=== PATIENT | female | born 1950 | race Caucasian/White ===

== ENCOUNTER 2017-06-01 20:01 | Emergency (ER) | payer SELFPAY ==
[2017-06-01] MEDS ORDERED: ACETAMINOPHEN 1,000 MG/100 ML 100 ML IV STA (20:20)
[2017-06-01] MEDS ORDERED: SODIUM CHLORIDE 0.9% 1,000 ML IV ONE ×3 (20:20)
--- NOTE | 2017-06-01 20:23 | ED Physician Documentation ---
History of Present Illness - Stated complaint Stated Complaint: FEVER, PAIN - Chief complaint Chief Complaint: General - History obtained from History obtained from: Patient, Friend - History of Present Illness Timing: How many weeks ago (1) Pain level max: 8 Pain level now: 8 Improved by: motrin Worsened by: moving - Additonal information Additional information: Patient is a 66-year-old female who presents to the emergency department with intermittent fevers, body aches, nausea, vomiting, diarrhea for the past week. The vomiting and diarrhea stopped approximately 3 days ago, but she has continued to have fevers and body aches. Also has a mild cough. No sore throat. Has been taking Motrin and aspirin at home for the pain. Denies any dysuria. Has been around people who have been ill. Has not had any vaccinations this year. Has not had a flu shot. Review of Systems Ten Systems: 10 systems reviewed and negative Constitutional: reports: Fever, Chills, Myalgias, Fatigue Nose: reports: Congestion Respiratory: reports: Cough GI: reports: Nausea, Vomiting, Diarrhea : denies: Dysuria Skin: denies: Rash Musculoskeletal: denies: Neck pain, Back pain Neurologic: denies: Focal weakness, Numbness, Headache PD PAST MEDICAL HISTORY - Past Medical History Past Medical History: No - Past Surgical History Past Surgical History: No - Present Medications Home Medications: Ambulatory Orders Medication Instructions Recorded Confirmed Ciprofloxacin HCl [Cipro] 500 mg PO BID #20 tablet 06/01/17 Hydrocodone/Acetaminophen 1 - 2 each PO Q6H PRN #14 tablet 06/01/17 [Hydrocodon-Acetaminophen 5-325] Ondansetron Odt [Zofran] 4 mg TL Q6H PRN #10 tablet 06/01/17 - Allergies Allergies/Adverse Reactions: Allergies Allergy/AdvReac Type Severity Reaction Status Date / Time No Known Drug Allergies Allergy Verified 06/01/17 20:15 - Social History Does the pt smoke?: No Smoking Status: Never smoker Does the pt drink ETOH?: No Does the pt have substance abuse?: No - Immunizations Immunizations are current?: No PD ED PE NORMAL - Vitals Vital signs reviewed: Yes - General General: Alert and oriented X 3, No acute distress, Well developed/nourished - HEENT HEENT: PERRL, Ears normal, Pharynx benign, Other (dry lips and tongue) - Neck Neck: Supple, no meningeal sign, Other (shotty anterior lymphadenopathy) - Cardiac Cardiac: RRR, Strong equal pulses - Respiratory Respiratory: No respiratory distress, Clear bilaterally - Abdomen Abdomen: Soft, Non tender, Non distended - Back Back: No spinal TTP, Other (mild B CVAT) - Derm Derm: Warm and dry, No rash - Extremities Extremities: No edema - Neuro Neuro: Alert and oriented X 3, registered nurse practitioner 2-12 intact, No motor deficit, No sensory deficit, Normal speech - Psych Psych: Normal mood, Normal affect Results - Vitals Vitals: Vital Signs - 24 hr 06/01/17 06/01/17 20:05 21:16 Temperature 36.6 C 36.9 C Heart Rate 106 H 80 Respiratory 18 18 Rate Blood Pressure 161/101 H 159/111 H O2 Saturation 98 98 Oxygen O2 Source Room air - Labs Labs: Laboratory Tests 06/01/17 06/01/17 06/01/17 20:27 20:27 20:27 WBC 8.0 RBC 4.99 Hgb 15.4 Hct 45.5 MCV 91.2 MCH 30.8 MCHC 33.7 RDW 12.4 Plt Count 195 MPV 8.1 Neut # 6.2 Lymph # 1.0 L [place] # 0.7 Eos # 0.1 Baso # 0.0 Absolute Nucleated RBC 0.00 Nucleated RBC % 0.0 Sodium 136 Potassium 3.7 Chloride 102 Carbon Dioxide 24 Anion Gap 10.0 BUN 23 H Creatinine 1.6 H Estimated GFR (MDRD) 32 L Glucose 121 H Calcium 9.1 Total Bilirubin 1.0 AST 19 ALT 15 Alkaline Phosphatase 88 Total Protein 7.9 Albumin 4.0 Globulin 3.9 Albumin/Globulin Ratio 1.0 Lipase 29 Urine Color Urine Clarity Urine pH Ur Specific [place] Urine Protein Urine Glucose (UA) Urine Ketones Urine Occult Blood Urine Nitrite Urine Bilirubin Urine Urobilinogen Ur Leukocyte Esterase Urine RBC Urine WBC Ur Epithelial Cells Ur Squamous Epith Cells Urine Bacteria Ur Microscopic Review Urine Culture Comments Influenza A (Rapid) Negative Influenza B (Rapid) Negative Influenza Types A,B Ag - 06/01/17 22:08 WBC RBC Hgb Hct MCV MCH MCHC RDW Plt Count MPV Neut # Lymph # [place] # Eos # Baso # Absolute Nucleated RBC Nucleated RBC % Sodium Potassium Chloride Carbon Dioxide Anion Gap BUN Creatinine Estimated GFR (MDRD) Glucose Calcium Total Bilirubin AST ALT Alkaline Phosphatase Total Protein Albumin Globulin Albumin/Globulin Ratio Lipase Urine Color YELLOW Urine Clarity HAZY Urine pH 6.0 Ur Specific [place] 1.020 Urine Protein NEGATIVE Urine Glucose (UA) NEGATIVE Urine Ketones NEGATIVE Urine Occult Blood NEGATIVE Urine Nitrite POSITIVE H Urine Bilirubin NEGATIVE Urine Urobilinogen 0.2 (NORMAL) Ur Leukocyte Esterase TRACE H Urine RBC 0-5 Urine WBC >25 H Ur Epithelial Cells FEW Renal Tubular Ur Squamous Epith Cells MOD Squamous H Urine Bacteria Many H Ur Microscopic Review INDICATED Urine Culture Comments NOT INDICATED Influenza A (Rapid) Influenza B (Rapid) Influenza Types A,B Ag - Rads (name of study) cxr Radiology: Prelim report reviewed, EMP read contemporaneously, See rad report ( No acute disease) PD MEDICAL DECISION MAKING - ED course Complexity details: reviewed results, re-evaluated patient, considered differential, d/w patient ED course: Patient is a 66-year-old female who presents to the emergency department with diffuse body aches, bilateral CVA tenderness following 3 days of nausea vomiting and diarrhea. The symptoms stopped approximately 4 days ago. Appears to have pyelonephritis. No fever here. Normal white count. She is actually very well-appearing, nontoxic. Given 2 L of IV fluid as well as 4 mg of morphine. Symptoms resolved. Given Rocephin IV and will place on ciprofloxacin for home. We will also prescribe a small amount of pain medication for her for the next few days. Patient is not septic. Patient counseled regarding signs and symptoms for which I believe and urgent re- evaluation would be necessary. Patient with good understanding of and agreement to plan and is comfortable going home at this time This document was made in part using voice recognition software. While efforts are made to proofread this document, sound alike and grammatical errors may occur. Influenza testing is negative. Chest x-ray is normal. Departure - Departure Disposition: 01 Home, Self Care Clinical Impression: Pyelonephritis, Dehydration, Acute renal insufficiency Condition: Good Instructions: ED Kidney Infec Female Follow-Up: your,doctor in 1 week [Other] Prescriptions: Ciprofloxacin HCl [Cipro] 500 mg PO BID #20 tablet Hydrocodone/Acetaminophen [Hydrocodon-Acetaminophen 5-325] 1 - 2 each PO Q6H PRN #14 tablet PRN Reason: pain Ondansetron Odt [Zofran] 4 mg TL Q6H PRN #10 tablet PRN Reason: Nausea / Vomiting Comments: You appear to have a kidney infection tonight. You were given antibiotics tonight and start the oral antibiotics in the morning. Finish all antibiotics. Return if you worsen. Drink plenty of fluids and rest. Do not drink alcohol or drive while on narcotic pain medicine. Note that many narcotic pain relievers also contain tylenol/acetaminophen. Please ensure that your total dose of acetaminophen from all sources does not exceed 3 grams (3000mg) per day. You may constipated on this medication, take a stool softener such as "Colace" twice a day while you are on it. Also recommend a mvlj-rmh-ylzxpyl laxative such as senna or MiraLAX any day that you do not have a bowel movement. If you received narcotic pain medication in the emergency department, do not drive or operate machinery for the next 24 hours. Forms: Activity restrictions
[2017-06-01 20:39] LABS: BASOPHILS % (AUTO) 0.5 %; EOSINOPHILS # (AUTO) 0.1 10^3/uL (0.0-0.7); EOSINOPHILS % (AUTO) 0.8 %; HCT - HEMATOCRIT 45.5 % (37.0-47.0); HGB - HEMOGLOBIN 15.4 g/dL (12.0-16.0); LYMPHOCYTES % (AUTO) 12.6 %; MEAN CORPUSCULAR HEMOGLOBIN 30.8 pg (27.0-31.0); MEAN CORPUSCULAR HGB CONC 33.7 g/dL (32.0-36.0); MEAN CORPUSCULAR VOLUME 91.2 fL (81.0-99.0); MEAN PLATELET VOLUME 8.1 fL (7.9-10.8); MONOCYTES # (AUTO) 0.7 10^3/uL (0.0-1.0); MONOCYTES % (AUTO) 8.2 %; NEUTROPHILS # (AUTO) 6.2 10^3/uL (1.5-6.6); NEUTROPHILS % (AUTO) 77.9 %; RED BLOOD COUNT 4.99 10^6/uL (4.20-5.40); RED CELL DISTRIBUTION WIDTH 12.4 % (12.0-15.0)
[2017-06-01 20:49] LABS: CALCIUM 9.1 mg/dL (8.5-10.3); CREATININE 1.6 mg/dL (0.4-1.0); POTASSIUM 3.7 mmol/L (3.5-5.0); TOTAL PROTEIN 7.9 g/dL (6.7-8.2)
--- NOTE | 2017-06-01 21:03 | XRAY Preliminary Report ---
Exam: XR CHEST 2 VIEW PA/LAT IMPRESSION: No acute cardiopulmonary abnormality. [facility] SITE ID: [id number]
[2017-06-01] MEDS ORDERED: KETOROLAC 60 MG/2 ML VIAL IVP STA (21:06)
--- NOTE | 2017-06-01 21:06 | XRAY Report ---
EXAM: CHEST RADIOGRAPHY EXAM DATE: 06/01/2017 08:48 PM. CLINICAL HISTORY: Fever, cough, bodyaches. COMPARISON: None. TECHNIQUE: 2 views. FINDINGS: Lungs/Pleura: No focal opacities evident. No pleural effusion. No pneumothorax. Normal volumes. Mediastinum: Normal heart size itself tortuous aorta. Other: None. IMPRESSION: No acute cardiopulmonary abnormality. [facility] Referring Provider Line: [phone] SITE ID: [id number]
[2017-06-01] MEDS ORDERED: MORPHINE 10 MG/ML VIAL IVP STA (21:21)
[2017-06-01 22:12] LABS: BILIRUBIN,URINE NEGATIVE (NEGATIVE)
[2017-06-01 22:13] LABS: UA w/ MICROSCOPIC CHARGE YES
[2017-06-01 22:21] LABS: WBC,URINE >25 /HPF (0-5)
[2017-06-01 22:23] LABS: UR CULTURE IF IND NOT INDICATED
[2017-06-01] MEDS ORDERED: cefTRIAXone 1 GM VIAL IVP STA (22:27)
[2017-06-01] MEDS ORDERED: HYDROcod/ACETAM 5/325 MG TABLET PO STA (22:29)
[2017-06-01 23:22] VITALS: BP 144/96
== END 2017-06-01 23:22 | disposition home or self-care (01) ==
LOC: ED 20:01
DX: N12 Tubulo-interstitial nephritis, not specified as acute or chronic (principal); E86.0 Dehydration; N28.9 Disorder of kidney and ureter, unspecified
CPT/HCPCS: 71020; 80053; 81001; 83690; 85025; 87275; 87276; 96361; 96374; 96375; 99283; 99284; A9270; J0131; 36415; 81003; 87086

== ENCOUNTER 2017-06-29 13:11 | Outpatient (CLI) | payer OTHER ==
[2017-06-29 19:05] LABS: BASOPHILS % (AUTO) 0.6 %; EOSINOPHILS # (AUTO) 0.1 10^3/uL (0.0-0.7); EOSINOPHILS % (AUTO) 2.3 %; HGB - HEMOGLOBIN 13.9 g/dL (12.0-16.0); LYMPHOCYTES # (AUTO) 1.3 10^3/uL (1.5-3.5); LYMPHOCYTES % (AUTO) 28.9 %; MEAN CORPUSCULAR HGB CONC 32.2 g/dL (32.0-36.0); MEAN CORPUSCULAR VOLUME 93.2 fL (81.0-99.0); MEAN PLATELET VOLUME 8.4 fL (7.9-10.8); MONOCYTES # (AUTO) 0.3 10^3/uL (0.0-1.0); NEUTROPHILS # (AUTO) 2.6 10^3/uL (1.5-6.6); NEUTROPHILS % (AUTO) 60.2 %; PLT - PLATELET COUNT 162 10^3/uL (130-450); RED BLOOD COUNT 4.62 10^6/uL (4.20-5.40); RED CELL DISTRIBUTION WIDTH 12.7 % (12.0-15.0); WHITE BLOOD COUNT 4.3 x10^3/uL (4.8-10.8)
== END 2017-06-29 13:12 | disposition home or self-care (01) ==
LOC: LAB.N 13:11
PROVIDERS: ATTEND Ophthalmology
DX: H15.001 Unspecified scleritis, right eye (principal)
CPT/HCPCS: 36415; 85025; 85651; 86021; 86140

== ENCOUNTER 2017-07-11 08:00 | Outpatient (CLI) | payer OTHER ==
[2017-07-11 13:07] LABS: BASOPHILS # (AUTO) 0.1 10^3/uL (0.0-0.1); EOSINOPHILS # (AUTO) 0.1 10^3/uL (0.0-0.7); EOSINOPHILS % (AUTO) 1.9 %; HGB - HEMOGLOBIN 13.7 g/dL (12.0-16.0); LYMPHOCYTES # (AUTO) 0.7 10^3/uL (1.5-3.5); MEAN CORPUSCULAR HEMOGLOBIN 30.5 pg (27.0-31.0); MEAN CORPUSCULAR HGB CONC 35.3 g/dL (32.0-36.0); MEAN CORPUSCULAR VOLUME 86.6 fL (81.0-99.0); MEAN PLATELET VOLUME 8.8 fL (7.9-10.8); MONOCYTES # (AUTO) 0.5 10^3/uL (0.0-1.0); MONOCYTES % (AUTO) 8.3 %; NEUTROPHILS # (AUTO) 4.6 10^3/uL (1.5-6.6); NEUTROPHILS % (AUTO) 75.8 %; PLT - PLATELET COUNT 153 10^3/uL (130-450); RED BLOOD COUNT 4.48 10^6/uL (4.20-5.40); RED CELL DISTRIBUTION WIDTH 12.9 % (12.0-15.0); WHITE BLOOD COUNT 6.1 x10^3/uL (4.8-10.8)
[2017-07-11 17:31] LABS: HB2 TOTAL 14.4 g/dL; HEMOGLOBIN A1C 0.5 g/dL; HEMOGLOBIN A1C % 5.3 % (4.6-6.2)
[2017-07-13 16:41] LABS: ANA SCREEN POSITIVE (NEGATIVE)
== END 2017-07-11 08:01 | disposition home or self-care (01) ==
LOC: LAB.N 08:00
PROVIDERS: ATTEND Internal Medicine
DX: E11.9 Type 2 diabetes mellitus without complications (principal)
CPT/HCPCS: 36415; 81599; 82164; 82947; 83036; 85025; 85549; 85651; 86038; 86140; 86592

== ENCOUNTER 2020-04-27 08:00 | Outpatient (CLI) | payer MEDICARE, OTHER ==
[2020-04-27 17:49] LABS: BASOPHILS # (AUTO) 0.1 10^3/uL (0.0-0.1); BASOPHILS % (AUTO) 0.9 %; EOSINOPHILS # (AUTO) 0.1 10^3/uL (0.0-0.7); EOSINOPHILS % (AUTO) 2.7 %; HGB - HEMOGLOBIN 13.1 g/dL (12.0-16.0); LYMPHOCYTES # (AUTO) 1.5 10^3/uL (1.5-3.5); MEAN CORPUSCULAR HEMOGLOBIN 32.2 pg (27.0-31.0); MEAN CORPUSCULAR HGB CONC 32.4 g/dL (32.0-36.0); MEAN CORPUSCULAR VOLUME 99.3 fL (81.0-99.0); MEAN PLATELET VOLUME 10.1 fL (7.9-10.8); MONOCYTES # (AUTO) 0.4 10^3/uL (0.0-1.0); MONOCYTES % (AUTO) 6.6 %; NEUTROPHILS # (AUTO) 3.2 10^3/uL (1.5-6.6); NEUTROPHILS % (AUTO) 60.6 %; PLT - PLATELET COUNT 187 10^3/uL (130-450); RED BLOOD COUNT 4.07 10^6/uL (4.20-5.40); WHITE BLOOD COUNT 5.3 x10^3/uL (4.8-10.8)
[2020-04-27 18:09] LABS: ALBUMIN 4.1 g/dL (3.2-5.5); ALBUMIN/GLOBULIN RATIO 1.3 (1.0-2.2); BILIRUBIN,TOTAL 0.6 mg/dL (0.2-1.0); CALCIUM 9.1 mg/dL (8.5-10.3); CREATININE 1.7 mg/dL (0.4-1.0); TOTAL PROTEIN 7.2 g/dL (6.7-8.2)
== END 2020-04-27 23:59 | disposition home or self-care (01) ==
LOC: LAB.WCP 08:00
PROVIDERS: ATTEND Physician Assistant
DX: I10 Essential (primary) hypertension (principal); G45.9 Transient cerebral ischemic attack, unspecified
CPT/HCPCS: 36415; 80053; 85025

== ENCOUNTER 2020-06-18 13:29 | Outpatient (CLI) | payer MEDICARE ==
[2020-06-18 18:17] LABS: HGB - HEMOGLOBIN 13.4 g/dL (12.0-16.0); MEAN CORPUSCULAR HEMOGLOBIN 32.7 pg (27.0-31.0); MEAN CORPUSCULAR HGB CONC 32.5 g/dL (32.0-36.0); MEAN CORPUSCULAR VOLUME 100.5 fL (81.0-99.0); MEAN PLATELET VOLUME 9.9 fL (7.9-10.8); RED BLOOD COUNT 4.1 10^6/uL (4.20-5.40); RED CELL DISTRIBUTION WIDTH 12.1 % (12.0-15.0)
[2020-06-18 18:39] LABS: CREATININE 1.8 mg/dL (0.4-1.0)
[2020-06-18 18:49] LABS: CREATININE,URINE 83.8 mg/dL; PROTEIN/CREATININE RATIO,URINE 0.1 (<=0.2)
--- OUTSIDE RECORDS SUMMARY | 2020-06-23 01:55 | EXTERNAL MEDICAL SUMMARY RPT | Continuity of Care Document ---
:1950 Demographics Phone Unavailable Preferred Language Estonian Marital Status Unknown Confucianism Affiliation Unknown Race Unknown Ethnic Group Unknown Author Organization [place] Address [address] [phone] Phone Care Team Providers Name Role Phone Rookstool Unavailable Unavailable MCKEON Unavailable Unavailable PA-C Unavailable Unavailable Problems date description facility Never smoked tobacco (finding) [facility] Patient Education [facility] Finding [facility] 2017-06-01 20:01 DEHYDRATION [facility] 2017-06-01 20:01 TUBULO-INTERSTITIAL NEPHRITIS, [facility]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 SPCF ACUTE OR CHRONIC 2017-06-01 20:01 DISORDER OF KIDNEY AND URETER, [facility] UNSPECIFIED 2017-06-01 20:01 FEVER, UNSPECIFIED [facility] 2017-06-29 13:11 UNSPECIFIED SCLERITIS, RIGHT [facility] EYE 2017-07-11 08:00 TYPE 2 DIABETES MELLITUS [facility] WITHOUT COMPLICATIONS 2017-07-25 12:00 OCULAR PAIN, RIGHT EYE [facility] 2020-04-21 00:00:00 Unspecified [facility] hypertension [facility] 2020-04-21 00:00:00 Unspecified transient cerebral [facility] ischemia [facility] 2020-04-21 00:00:00 Nonspecific (abnormal) findings [facility] Primary Care on radiological and other [facility] examination of skull and head 2020-04-21 00:00:00 COMPREHENSIVE METABOLIC PANEL [facility] Primary Care [facility] 2020-04-21 00:00:00 CBC W/Diff/Plt [facility] Prim carlos Care [facility] 2020-04-21 00:00:00 Transient cerebral ischemic [facility] Primary Care attack, unspecified [facility] 2020-04-21 00:00:00 Essential [facility]primary[facility] hypertension [facility] 2020-04-21 00:00:00 Other abnormal findings on [facility] Primary Care diagnostic imaging of central [place] [facility] nervous system 2020-04-21 00:00:00 [facility] exposure [facility] 2020-04-21 00:00:00 Transient cerebral ischemia [facility] 2020-04-21 00:00:00 Never smoker [facility] 2020-04-21 00:00:00 Hypertensive disorder [facility] 2020-04-21 00:00:00 Magnetic resonance imaging of [facility] Primary [facility] brain abnormal [facility] 2020-04-21 00:00:00 Little interest or pleasure in [facility] Primary Care doing things? [facility] 2020-04-21 00:00:00 Feeling down, depressed, or [facility] hopeless? [facility] 2020-04-21 00:00:00 Patient Health Questionnaire 2 [facility] item (PHQ2) total score [facility] 2020-04-21 00:00:00 [facility] 2020-04-27 00:00 TRANSIENT CEREBRAL ISCHEMIC [facility] [place] ATTACK, UNSPECIFIED 2020-04-27 00:00 [facility] 2020-04-27 00:00:00 Chronic kidney disease, Stage [facility] III (moderate) [facility] 2020-04-27 00:00:00 Chronic kidney disease, stage 3 [facility] (moderate) [facility] 2020-04-27 00:00:00 Chronic kidney disease stage 3 [facility] 2020-04-27 08:00 TRANSIENT CEREBRAL ISCHEMIC [facility] ATTACK, UNSPECIFIED 2020-04-27 08:00 [facility] 2020-05-21 00:00:00 Tobacco [facility] and exposure [facility] 2020-05-21 00:00:00 [facility]oker [facility] 2020-06-18 00:00 UNSP [facility]RITIC [facility] UNSPECIFIED MORPHOLOGIC CHANGES 2020-06-18 13:29 UNSP NEPHRITIC SYNDROME WITH [facility] UNSPECIFIED MORPHOLOGIC CHANGES Allergies date description facility No Known Drug Allergies [facility] NO ALLERGY INFORMATION AVAILABLE [facility] NO KNOWN ALLERG[facility] CODEINE [facility] OXYCODONE [facility] CRAB [facility] HYDROCHLOROTHIAZIDE [facility] GABAPENTIN [facility] IODINE [facility] LATEX [facility] ZOLEDRONIC ACID [facility] HYDROCODONE-ACETAMINOPHEN [facility] ADHESIVE TAPE-SILICONES [facility] ASPIRIN [facility] AZITHROMYCIN [facility] CODEINE [facility] ERYTHROMYCIN [facility] GABAPENTIN [facility] MESALAMINE [facility] METHOCARBAMOL [facility] METRONIDAZOLE [facility] PRASTERONE [facility] VARENICLINE [facility] METHOCARBAMOL [facility]INS [facility] SULFA ANTIBIOTICS [facility] NO ALLERGY INFORMATION AVAILABLE [facility] FISH OIL [facility] No Known Drug Allergies [facility] Medications date description facility 2020-04-15 00:00:00 Losartan Potassium 50 MG Oral [facility] Tablet 2020-04-21 00:00:00 null [facility] 2020-04-21 00:00:00 null [facility] 2020-04-21 00:00:00 null [facility] 2020-04-21 00:00:00 null [facility] 2020-04-21 00:00:00 LOSARTAN POTASSIUM [facility] 2020-04-21 00:00:00 LOSARTAN POTASSIUM [facility] 2020-04-21 00:00:00 LOSARTAN POTASSIUM [facility] 2020-04-21 00:00:00 LOSARTAN POTASSIUM [facility] 2020-05-21 00:00:00 null [facility] 2020-05-21 00:00:00 null [facility] 2020-05-21 00:00:00 null [facility] 2020-05-21 00:00:00 null [facility] 2020-05-21 00:00:00 null [facility] 2020-05-21 00:00:00 null [facility] 2020-05-21 00:00:00 CARBAMAZEPINE [facility] 2020-05-21 00:00:00 AMLODIPINE BESYLATE [facility] 2020-05-21 00:00:00 MULTIPLE VITAMINS-MINERALS [facility] 2020-05-21 00:00:00 AMLODIPINE BESYLATE [facility] 2020-05-21 00:00:00 CARBAMAZEPINE [facility] Procedures date description facility 2020-04-14 00:00:00 Diagnosis [facility] date description facility 2020-04-14 00:00:00 [facility] date description facility 2020-04-14 00:00:00 [facility] date description facility 2020-04-14 00:00:00 [facility] date description facility 2020-04-14 00:00:00 [facility] date description facility 2020-04-14 00:00:00 Finding [facility] date description facility 2020-04-14 00:00:00 [facility] date description facility 2020-04-14 00:00:00 [facility] date description facility 2020-04-14 00:00:00 General Physician [facility] date description facility 2020-04-14 00:00:00 [facility] date description facility 2020-04-14 00:00:00 [facility] Results Social History date description facility [id number] Never smoked tobacco (finding) [facility] date description facility 2020-04-21 00:00:00 [facility] 2020-05-21 00:00:00 [facility] Social History date description facility [id number] Never smoked tobacco (finding) [facility] date description facility 2020-04-21 00:00:00 [facility] 2020-05-21 00:00:00 [facility] date description facility [id number]
== END 2020-06-18 23:59 | disposition home or self-care (01) ==
LOC: LAB.WCP 13:29
PROVIDERS: ATTEND Internal Medicine Nephrology
DX: N05.9 Unspecified nephritic syndrome with unspecified morphologic changes (principal); D70.9 Neutropenia, unspecified; D63.1 Anemia in chronic kidney disease; R80.9 Proteinuria, unspecified
CPT/HCPCS: 36415; 80048; 82570; 84156; 85027

== ENCOUNTER 2020-07-13 15:17 | Outpatient (CLI) | payer MEDICARE ==
--- NOTE | 2020-07-13 16:56 | Ultrasound Report ---
PROCEDURE: Retroperitoneal INDICATIONS: KIDNEY DYSFUNCTION TECHNIQUE: Real-time scanning was performed of the retroperitoneal organs, with image documentation. COMPARISON: None. FINDINGS: Kidneys: Kidneys are normal in size. Right kidney measures 8.8 cm long; left kidney measures 9.1 cm long. Right renal cortical thickness is 1 cm; left renal cortical thickness is 0.8 cm. Renal echoge nicity is mildly increased bilaterally, slightly worse on the right. A 9 x 3 x 7 mm echogenic focus i n the inferior pole of the right kidney without posterior shadowing may represent a small angiomyolip pavan. A simple appearing cyst is seen in the superior pole of the left kidney. There is mild right-iwona ed hydronephrosis. Bladder: Pre-void bladder volume is 381 mL. Post-void residual is 39 mL. Pre-void images demonstra te no intraluminal masses or stones. On pre-void images, bilateral ureteral jets are noted with colo r Doppler interrogation. (Of note, ureteral jets may not be detectable in up to 25% of cases due to insufficient differences in specific gravity between ureteral and bladder urine). Miscellaneous: No free pelvic fluid. IMPRESSION: 1. Mild right hydronephrosis. 2. Borderline renal cortical atrophy and mildly increased renal echogenicity can be seen in the sett ing of medical renal disease. 3. Hyperechoic 9 mm lesion in the inferior pole of the right kidney is most likely a small angiomyol ipoma versus a nonshadowing calculus or prominent renal sinus fat. 4. Post void bladder residual volume is 39 mL. Reviewed by: Charlie Quevedo MD on 07/13/2020 4:55 PM PST Approved by: Charlie Quevedo MD on 07/13/2020 4:55 PM PST Station ID: [id number]
== END 2020-07-13 15:18 | disposition home or self-care (01) ==
LOC: DI 15:17
PROVIDERS: ATTEND Internal Medicine Nephrology
DX: N13.30 Unspecified hydronephrosis (principal); R93.422 Abnormal radiologic findings on diagnostic imaging of left kidney; R93.421 Abnormal radiologic findings on diagnostic imaging of right kidney

== ENCOUNTER 2020-07-21 08:00 | Outpatient (CLI) | payer MEDICARE | END 2020-07-21 23:59 | disposition home or self-care (01) | LOC: LAB.WCP 08:00 | PROVIDERS: ATTEND Physician Assistant | DX: E83.30 Disorder of phosphorus metabolism, unspecified (principal); N25.81 Secondary hyperparathyroidism of renal origin | CPT/HCPCS: 36415; 80053; 83970; 84100; 85025 ==